=== PATIENT | male | born 1945 | race Caucasian/White ===

== ENCOUNTER 2021-05-11 14:10 | Emergency (ER) | payer OTHER, SELFPAY ==
[2021-05-11 14:15] VITALS: BP 168/84; PULSE 80; RESP 18; TEMP 36.9; O2SAT 98
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
[2021-05-11 15:23] LABS: Abs Immature Grans 0.04 10^3/uL (0.0-0.06); Absolute Basophil Count 0.03 10^3/uL (0.0-0.2); Absolute Eosinophil Count 0.02 10^3/uL (0.0-0.7); Absolute Lymphocyte Count 1.31 10^3/uL (1.2-3.4); Absolute Monocyte Count 0.63 10^3/uL (0.1-0.8); Absolute Neutrophil Count 5.53 10^3/uL (1.2-6.7); Basophils % 0.4; Eosinophils % 0.3; HCT 33.9 % (40.0-50.0); HGB 12.1 g/dL (13.5-17.5); Immature Grans % 0.5; Lymphocytes % 17.3; MCH 36.4 pg (27.0-33.0); MCHC 35.7 % (32.0-36.0); MCV 102.1 fL (80-95); MPV 8.6 fL (8.0-11.0); Monocytes % 8.3; Neutrophils % 73.2; Nucleated RBC 0 %; Platelet Count 252 10^3/uL (130-400); RBC 3.32 10^6/uL (4.36-5.78); RDW 11.1 % (11.8-14.1); RDW-SD 41.6 fL; WBC 7.56 10^3/uL (4.4-10.8)
[2021-05-11] MEDS: Silver sulfaDIAZINE 1% 25 GM TUBE (16:11)
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
[2021-05-11 16:27] LABS: ALT 12 U/L (16-63); AST 19 U/L (15-37); Albumin 3.7 g/dL (3.4-5.0); Alkaline Phosphatase 83 U/L (46-116); Anion Gap 8.7 mmol/L (3-11); BUN 11 mg/dL (7-18); Bilirubin, Total 0.6 mg/dL (0.2-1.0); C-Reactive Protein 0.71 mg/dL (0.0-0.3); CO2 26.3 mmol/L (21.0-32.0); CREATININE 1.1 mg/dL (0.70-1.30); Calcium 8.8 mg/dL (8.5-10.1); Chloride 91 mmol/L (98-107); Glucose 97 mg/dL (74-106); Potassium 4.3 mmol/L (3.5-5.1); Sodium 126 mmol/L (136-145); Total Protein 7.5 g/dL (6.4-8.2)
[2021-05-11 16:28] VITALS: PULSE 73; TEMP 36.8; O2SAT 96
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
== END 2021-05-11 16:33 | disposition home or self-care (01) ==
PROVIDERS: Emergency Provider Physician Assistant; PCP Family Medicine Adult Medicine
DX: T25.292A Burn of second degree of multiple sites of left ankle and foot, initial encounter (principal); T24.232A Burn of second degree of left lower leg, initial encounter; T24.291A Burn of second degree of multiple sites of right lower limb, except ankle and foot, initial encounter; X01.8XXA Other exposure to uncontrolled fire, not in building or structure, initial encounter
CPT/HCPCS: 16020; 80053; 90471; 99284; 85025; 86140; 99283; J3490

== ENCOUNTER → 2021-07-03 00:18 | Outpatient (CLI) | payer OTHER, SELFPAY ==
--- NOTE | 2021-07-03 10:52 | DI.RAD_ITS ---
Exam(s) XR LUMBAR SPINE COMPLETE EXAM: XR LUMBAR SPINE COMPLETE CLINICAL HISTORY: LOW BACK PAIN,[id number]. TECHNIQUE: 2D digital imaging was performed. Five views. COMPARISON: No exams were available for comparison FINDINGS: BONES: No fracture or destructive lesion. Vertebral bodies are unremarkable. Mild facet hypertrophy i dentified. DISKS: Mild narrowing of L2-3 and L3-4 disc spaces and moderate narrowing of the L4-5 and L5-S1 disc spaces. Small endplate osteophytes are seen throughout. ALIGNMENT: Lumbar spinal alignment is within normal limits. SOFT TISSUE: There is amount of overlying bowel gas somewhat obscures visualization of bony detail. There is no evidence of bowel obstruction. The aorta is calcified and normal in diameter. IMPRESSION: Degenerative disc changes and facet degenerative changes greatest at L4-5 and L5-S1. DATA REPOSITORY: RADIATION DOSE DELIVERED:
--- NOTE | 2021-07-03 10:52 | DI.RAD_ITS ---
Exam(s) XR PELVIS AP EXAM: XR PELVIS AP CLINICAL HISTORY: BACK AND HIP PAIN,[id number]. TECHNIQUE: 2D digital imaging was performed. COMPARISON: No exams were available for comparison FINDINGS: BONES: No acute fracture is present. No bony destructive lesion is seen. Degenerative changes are n oted in the lower lumbar spine. JOINTS: No dislocation present. Severe joint space narrowing, [id number] appearance of the right mejia perior hip joint. Periarticular spurring and sclerosis. Some flattening of the superior right humer al head and mild remodeling of the right acetabulum. Left hip joint space well maintained. Mild spu rring at the left acetabulum and left femoral head. SOFT TISSUE: Gas seen in small and large bowel. No evidence of obstruction. Vascular calcifications . IMPRESSION: End-stage degenerative changes of the right hip. DATA REPOSITORY: RADIATION DOSE DELIVERED:
== END ==
PROVIDERS: Visit Provider Occupational Therapist
DX: M47.817 Spondylosis without myelopathy or radiculopathy, lumbosacral region; M25.559 Pain in unspecified hip
CPT/HCPCS: 72110; 72170